=== PATIENT | male | born 1945 | race Caucasian/White ===

== ENCOUNTER 2018-01-23 02:11 | Emergency (ER) | payer MEDICARE, BC, SELFPAY ==
[2018-01-23 02:42] VITALS: BP 126/67; PULSE 95; RESP 20; TEMP 37.2; O2SAT 96; BMI 24.3
--- NOTE | 2018-01-23 03:40 | ED_ITS ---
HPI - Abdominal Pain General Chief Complaint: Abdominal Pain Stated Complaint: can't eat/nausea/loose stool/kidneys hurt Time Seen by Provider: 01/23/18 03:14 Source: patient Mode of arrival: ambulatory Limitations: no limitations History of Present Illness HPI narrative: Patient states he has been having abdominal cramping, nausea, diarrhea, and back pain for the last 3 days. He states he was hoping that he would get better, but the symptoms she has keep going on. He and his were supposed to leave [place] train trip [place], the patient does not feel well enough to go. He denies fevers. No abdominal trauma. No chronic abdominal conditions. MD complaint: abdominal pain Onset (ago): day(s) (Three) Pain Consistency: intermittent (Lacks is awake) Location: diffuse (Worse in the lower) Severity: moderate Severity scale (1-10): 5 Quality: cramping and stabbing Radiation: none Migration to: no migration Relieving factors: nothing Exacerbating factors: eating Context: other (No foreign travel or sick contacts. No food poisoning or recent antibiotic use.) Related Data Home Medications Medication Instructions Recorded Confirmed metoprolol succinate 50 mg PO QDAY #30 ter 01/05/16 Previous Rx's Medication Instructions Recorded nitroglycerin [Nitrostat] 0.4 mg SUBLINGUAL PRN PRN #30 tab 01/06/16 diazepam [Valium] 10 mg PO TIDP PRN #10 tab 03/25/16 ibuprofen 600 mg PO Q6HP PRN #20 tab 03/25/16 prednisone 10 mg PO QDAY #30 tab 03/25/16 acetaminophen-codeine 1 tab PO Q6H PRN #7 tab 01/23/18 [Tylenol-Codeine #3] azithromycin See Label Instructions .ROUTE 01/23/18 .COMPLEX #6 tab ondansetron [Zofran ODT] 4 mg PO QID PRN #10 tab 01/23/18 Allergies Allergy/AdvReac Type Severity Reaction Status Date / Time Penicillins [PENICILLINS] Allergy Mild ANAPHLAXYSI Verified 01/23/18 02:46 S Review of Systems Review of Systems All systems reviewed & are unremarkable except as noted in HPI and below Constitutional Denies chills, Denies fever(s), Denies lethargy and Denies weakness Eyes Denies change in vision, Denies eye discharge, Denies irritation and Denies loss of vision ENT Ears, Nose, Mouth, and Throat: Denies change in voice, Denies neck pain and Denies sore throat Cardiovascular Denies chest pain, Denies irregular heart rhythm, Denies lightheadedness, Denies palpitations, Denies dyspnea, Denies dyspnea on exertion and Denies orthopnea Respiratory Denies cough, Denies dyspnea, Denies dyspnea on exertion and Denies wheezing Gastrointestinal Gastrointestinal: Reports abdominal pain, Reports change in bowel habits, Reports diarrhea, Reports nausea and Denies vomiting Genitourinary Denies hematuria, Denies flank pain, Denies urinary incontinence and Denies urinary urgency Musculoskeletal Denies neck pain Integumentary/Breasts Denies pruritus, Denies erythema, Denies rash and Denies wounds Neurologic Denies confusion, Denies loss of vision and Denies weakness Psychiatric Denies anxiety, Denies confusion, Denies depression, Denies homicidal ideation and Denies suicidal ideation Endocrine Denies palpitations Hematologic/Lymphatic Denies easy bruising Allergic/Immunologic Denies wheezing [facility] Medical History Joint pain (Acute) Sciatica of right side (Acute) Chest pain (Acute) Lumbar strain (Acute) Surgical History No pertinent past surgical history (Acute) Social History Smoking Status: Current some day smoker Exam Initial Vital Signs Initial Vital Signs: Vital Signs Temperature 99.0 F 01/23/18 02:42 Pulse Rate 95 H 01/23/18 02:42 Respiratory Rate 20 01/23/18 02:42 Blood Pressure 126/67 01/23/18 02:42 Pulse Oximetry 96 01/23/18 02:42 Const General: cooperative and well developed Nutritional Appearance: well nourished Orientation: alert, awake, oriented x3 and not confused [facility] Head: normocephalic and atraumatic Ears: external ears normal Nose: external nose normal and No nasal discharge Face and sinus: face symmetric and No dry mucous membranes Mouth: oral mucosae normal and moist mucous membranes Eyes General: appearance normal, both eyes and all related structures Eyelids: eyelids normal Conjunctivae: conjunctivae normal Sclera: sclerae normal Pupils: PERRL EOM: EOM intact bilaterally Neck Neck: normal visual inspection, trachea midline, No lymphadenopathy, No midline deformity and No JVD Lymphatic: No lymphedema Chest Chest: normal inspection of the chest Resp Effort & Inspection: normal respiratory effort, able to speak in complete sentences, no respiratory distress and no use of accessory muscles Auscultation: clear to auscultation bilaterally, no rales, no rhonchi and no wheezes Cardio Rate: regular rate Rhythm: regular rhythm Heart Sounds: no click, no gallops, no murmurs and no rubs Pulses: normal peripheral pulses GI Inspection: non-distended Palpation: soft, no hepatosplenomegaly, No guarding, No pulsatile mass and tender (Mild, diffuse) Auscultation: normal bowel sounds Back/Spine/Pelvis Back: No CVA tenderness Cervical Spine: cervical ROM normal and No pain with cervical ROM Thoracic/Lumbar Spine: thoracic and lumbar spine normal to inspection Skin General: no rashes or lesions noted, No jaundice and No petechiae Neuro General: alert, oriented x3, gait normal and no focal motor deficits Speech: speech normal Extrem General: full ROM, no clubbing, cyanosis or edema, no pedal edema and no calf tenderness Psych Appearance: well kempt Mental Status: mental status grossly normal Attitude: cooperative Thought Content: normal and suicidality Judgment: judgment good Course Course Narrative: Patient was worked up for his symptoms, including those labs and stool studies. He was treated symptomatically with IV fluids, Zofran, and analgesia. His stool studies did reveal Campylobacter. Patient was started on azithromycin for this. He was found to be feeling much better after receiving fluids and symptomatic medication. We have discussed home management symptoms, as well as the usual indications for return. Patient will follow up with his primary care physician otherwise. Orders Ordered: Discontinued Medications Azithromycin (Zithromax) 500 mg PO NOW ONE Stop: 01/23/18 06:21 Last Admin: 01/23/18 06:31 Dose: 500 mg Hydromorphone HCl (Dilaudid) 1 mg IV NOW ONE Stop: 01/23/18 04:26 Last Admin: 01/23/18 05:24 Dose: 1 mg Sodium Chloride (Normal Saline 0.9%) 1,000 mls @ 1,000 mls/hr IV BOLUS ONE Stop: 01/23/18 05:24 Last Infusion: 01/23/18 05:50 Dose: 0 mls/hr Admin: 01/23/18 04:48 Dose: 1,000 mls/hr Ketorolac Tromethamine (Toradol) 30 mg IV NOW ONE Stop: 01/23/18 04:22 Last Admin: 01/23/18 04:47 Dose: 30 mg Ondansetron HCl (Zofran) 4 mg IV NOW ONE Stop: 01/23/18 04:23 Last Admin: 01/23/18 04:47 Dose: 4 mg Vital Signs - 8 hr 01/23/18 02:42 Temperature 99.0 F Pulse Rate 95 H Respiratory Rate 20 Blood Pressure 126/67 Pulse Oximetry 96 MDM - Abdominal Pain Medical Records Attestation: I reviewed the patient's medical records. Lab Data Attestation: I reviewed the patient's lab results. Result diagrams: 01/23/18 04:50 01/23/18 04:50 Lab Results 01/23/18 01/23/18 Range/Units 04:50 04:50 WBC 5.8 (4.5-11.0) X10^3/uL RBC 4.52 (4.5-5.9) X10^6/uL Hgb 14.6 (13.5-17.5) g/dL Hct 41.8 (41-53) % MCV 92.3 (80-100) fL MCH 32.4 (26-34) PG MCHC 35.1 (30-36) % RDW 13.2 (11.6-14.8) % Plt Count 142 L (150-400) X10^3/uL Neut % (Auto) 63.9 (50-75) % Lymph % (Auto) 12.0 L (25-40) % [place] % (Auto) 22.7 H (3-14) % Eos % (Auto) 0.7 L (2-4) % Baso % (Auto) 0.7 (0-2) % Neut # (Auto) 3700 (7109-0465) /uL Sodium 132 L (137-145) mmol/L Potassium 3.5 (3.4-5.1) mmol/L Chloride 98 (98-107) mmol/L Carbon Dioxide 26 (22-32) mmol/L BUN 16 (9-20) mg/dL Creatinine 0.80 (0.66-1.25) mg/dL Estimated GFR > 60.0 (>60) mL/min BUN/Creatinine Ratio 20.0 (6-22) Glucose 134 H (80-110) mg/dL Calcium 8.6 (8.4-10.2) mg/dL Total Bilirubin 1.3 (0.2-1.3) mg/dL AST 25 (17-59) IU/L ALT 25 (21-72) IU/L Alkaline Phosphatase 61 (38-126) U/L Total Protein 6.3 (6.3-8.2) g/dL Albumin 3.6 (3.5-5.0) g/dL Globulin 2.7 (1.7-4.1) g/dL Albumin/Globulin Ratio 1.3 (1.0-2.8) Point of care testing: Urine Dip Bedside Urine Glucose Negative Bedside Urine Bilirubin - Negative Bedside Urine Ketone +/- 5 Urine Specific [place] 1.010 Bedside Urine Occult Blood - Negative Bedside Urine pH 6.0 Bedside Urine Protein +/- 15 Bedside Urine Urobilinogen - Negative Bedside Urine Nitrite - Negative Bedside Urine Leukocytes - Negative Esterase Imaging Data CT scan - abdomen: Radiologist's impression: [place] [address] CT Scan Report Signed Patient: Jameson Pavon MR#: [id number] : 1945 Acct:[id number] Age/Sex: 72 / M Date of Service: 01/23/18 Loc: ED Accession Number: [id number] Procedure: CT abdomen pelvis w con Ordering Provider: Lola Wright MD PROCEDURE: CT ABDOMEN PELVIS W CON INDICATIONS: abdominal pain TECHNIQUE: After the administration of intravenous contrast, 5 mm thick sections acquired from the diaphragm to the symphysis. 5 mm coronal and sagittal reformats were acquired. For radiation dose reduction, the following was used: automated exposure control, adjustment of mA and/or kV according to patient size. COMPARISON: None. FINDINGS: Image quality: Excellent. ABDOMEN: Lung bases: Lung bases are clear. Heart size is normal. Solid organs: Liver is normal in size and enhancement. Gallbladder is normal. Biliary system is non dilated. Pancreas enhances normally. Spleen is normal in size and enhancement. No adrenal nodules. Kidneys demonstrate normal size and enhancement, without hydronephrosis. Peritoneum and bowel: Stomach is contracted. Gastric wall may be thickened. Colon is diffusely thickened consistent with colitis. Terminal ileum also appears thickened. There is a small amount of free fluid in right paracolic gutters. No free air. There are scattered colonic diverticula. No evidence for active diverticulitis. Stomach is contracted. Nodes and vessels: No retroperitoneal or mesenteric adenopathy by size criteria. Aorta and inferior vena cava are normal in size. Severe splenic artery calcification. Miscellaneous: No ventral hernias. PELVIS: Genitourinary: Bladder wall thickness is normal. Miscellaneous: No inguinal hernias or adenopathy. Bones: No suspicious bony lesions. No vertebral body compression fractures. IMPRESSION: 1. Diffuse colonic wall thickening consistent with colitis. There is also thickening of terminal ileum. A small amount of free fluid is present in the paracolic gutters. No free air. Differential diagnosis includes infectious etiology versus inflammatory bowel disease. Recommend cortical correlation. 2. Stomach wall may be thickened but the stomach is contracted. 3. Diverticulosis without acute diverticulitis. No significant discrepancy with the manager shift radiology preliminary report. Dictated by: Wayne Lee M.D. on 01/23/2018 at 7:41 Transcribed by: JANNA on 01/23/2018 at 7:49 Approved by: Wayne Lee M.D. on 01/23/2018 at 18:09 [place] [address] CT Scan Report Signed Patient: Jameson Pavon MR#: [id number] : 1945 Acct:[id number] Age/Sex: 72 / M Date of Service: 01/23/18 Loc: ED Accession Number: [id number] Procedure: CT abdomen pelvis w con Ordering Provider: Lola Wright MD PROCEDURE: CT ABDOMEN PELVIS W CON INDICATIONS: abdominal pain TECHNIQUE: After the administration of intravenous contrast, 5 mm thick sections acquired from the diaphragm to the symphysis. 5 mm coronal and sagittal reformats were acquired. For radiation dose reduction, the following was used: automated exposure control, adjustment of mA and/or kV according to patient size. COMPARISON: None. FINDINGS: Image quality: Excellent. ABDOMEN: Lung bases: Lung bases are clear. Heart size is normal. Solid organs: Liver is normal in size and enhancement. Gallbladder is normal. Biliary system is non dilated. Pancreas enhances normally. Spleen is normal in size and enhancement. No adrenal nodules. Kidneys demonstrate normal size and enhancement, without hydronephrosis. Peritoneum and bowel: Stomach is contracted. Gastric wall may be thickened. Colon is diffusely thickened consistent with colitis. Terminal ileum also appears thickened. There is a small amount of free fluid in right paracolic gutters. No free air. There are scattered colonic diverticula. No evidence for active diverticulitis. Stomach is contracted. Nodes and vessels: No retroperitoneal or mesenteric adenopathy by size criteria. Aorta and inferior vena cava are normal in size. Severe splenic artery calcification. Miscellaneous: No ventral hernias. PELVIS: Genitourinary: Bladder wall thickness is normal. Miscellaneous: No inguinal hernias or adenopathy. Bones: No suspicious bony lesions. No vertebral body compression fractures. IMPRESSION: 1. Diffuse colonic wall thickening consistent with colitis. There is also thickening of terminal ileum. A small amount of free fluid is present in the paracolic gutters. No free air. Differential diagnosis includes infectious etiology versus inflammatory bowel disease. Recommend cortical correlation. 2. Stomach wall may be thickened but the stomach is contracted. 3. Diverticulosis without acute diverticulitis. No significant discrepancy with the manager shift radiology preliminary report. Dictated by: Wayne Lee M.D. on 01/23/2018 at 7:41 Transcribed by: JANNA on 01/23/2018 at 7:49 Approved by: Wayne Lee M.D. on 01/23/2018 at 18:09 Discharge Plan Departure Patient Disposition: Home Clinical Impression: Campylobacter enteritis Discharge Date/Time: 01/23/18 07:18 Interventions: ED Discharge Assessment Last Done: 01/23/18 07:15 Instructions: DI for Bacterial Gastroenteritis -- Adult Activity Restrictions/Additional Instructions: Your CT and labs look good. Your stool testing was positive for a certain type of bacteria which can cause the symptoms you are having. This will usually go away on its own about a week; however antibiotics can help shorten the duration of the illness. As such, you have been started on antibiotics appropriate for this infection. It is best not to take Imodium or other medications to try to control the diarrhea. Instead, use medication for nausea and drink as much fluid as possible. Prescriptions: New azithromycin 250 mg tablet See Label Instructions .ROUTE .COMPLEX Qty: 6 RF: 0 acetaminophen-codeine [Tylenol-Codeine #3] 300-30 mg tablet 1 tab PO Q6H PRN (Reason: pain) Qty: 7 RF: 0 ondansetron [Zofran ODT] 4 mg tablet,disintegrating 4 mg PO QID PRN (Reason: nausea and vomiting) Qty: 10 RF: 0 No Action metoprolol succinate 50 MG tablet extended release 24 hr 50 mg PO QDAY Qty: 30 RF: 0 nitroglycerin [Nitrostat] 0.4 MG tablet, sublingual 0.4 mg Sublingual PRN PRNQty: 30 RF: 2 prednisone 10 MG tablet 10 mg PO QDAY Qty: 30 RF: 0 diazepam [Valium] 10 MG tablet 10 mg PO TIDP PRNQty: 10 RF: 0 ibuprofen 600 MG tablet 600 mg PO Q6HP PRNQty: 20 RF: 0 Referrals: Miguelito Wilson MD [Primary Care Provider] - (Please follow-up with your doctor in 5 days if not better.)
[2018-01-23] MEDS: ONDANSETRON 4 MG/2 ML INJ IV (04:47)
[2018-01-23] MEDS: KETOROLAC 60 MG/2 ML VIAL 30 MG IV (04:47)
[2018-01-23] MEDS: SODIUM CHLORIDE 0.9% 1,000 ML 1000 ML IV (04:48)
[2018-01-23 05:04] LABS: Add Manual Diff / Slide Review NO; Basophils Percent Auto 0.7 % (0-2); Eosinophils Percent Auto 0.7 % (2-4); Hematocrit 41.8 % (41-53); Hemoglobin 14.6 g/dL (13.5-17.5); Mean Corpuscular HGB Conc 35.1 % (30-36); Mean Corpuscular Hemoglobin 32.4 PG (26-34); Mean Corpuscular Volume 92.3 fL (80-100); Monocytes Percent Auto 22.7 % (3-14); Neutrophils Absolute Auto 3700 /uL (3000-5900); Neutrophils Percent Auto 63.9 % (50-75); Platelet Count 142 X10^3/uL (150-400); Red Blood Cell Count 4.52 X10^6/uL (4.5-5.9); Red Cell Distribution Width 13.2 % (11.6-14.8); White Blood Cell Count 5.8 X10^3/uL (4.5-11.0)
[2018-01-23 05:09] LABS: Alanine Aminotransferase 25 IU/L (21-72); Albumin 3.6 g/dL (3.5-5.0); Albumin Globulin Ratio 1.3 (1.0-2.8); Alkaline Phosphatase 61 U/L (38-126); Aspartate Aminotransferase 25 IU/L (17-59); Bilirubin Total 1.3 mg/dL (0.2-1.3); Blood Urea Nitrogen 16 mg/dL (9-20); Calcium 8.6 mg/dL (8.4-10.2); Carbon Dioxide 26 mmol/L (22-32); Chloride 98 mmol/L (98-107); Estimated Glomerular Filt Rate > 60.0 mL/min (>60); Globulin 2.7 g/dL (1.7-4.1); Glucose 134 mg/dL (80-110); HEMOLYSIS 45 (0-50); Potassium 3.5 mmol/L (3.4-5.1); Sodium 132 mmol/L (137-145); Total Protein 6.3 g/dL (6.3-8.2)
[2018-01-23 05:20] VITALS: BP 114/65; PULSE 80; RESP 15; O2SAT 97
--- NOTE | 2018-01-23 05:20 | DI.CT.S_ITS ---
PROCEDURE: CT ABDOMEN PELVIS W CON INDICATIONS: abdominal pain TECHNIQUE: After the administration of intravenous contrast, 5 mm thick sections acquired from the diaphragm to the symphysis. 5 mm coronal and sagittal reformats were acquired. For radiation dose reduction, the following was used: automated exposure control, adjustment of mA and/or kV according to patient size. COMPARISON: None. FINDINGS: Image quality: Excellent. ABDOMEN: Lung bases: Lung bases are clear. Heart size is normal. Solid organs: Liver is normal in size and enhancement. Gallbladder is normal. Biliary system is non dilated. Pancreas enhances normally. Spleen is normal in size and enhancement. No adrenal nodules. Kidneys demonstrate normal size and enhancement, without hydronephrosis. Peritoneum and bowel: Stomach is contracted. Gastric wall may be thickened. Colon is diffusely thickened consistent with colitis. Terminal ileum also appears thickened. There is a small amount of free fluid in right paracolic gutters. No free air. There are scattered colonic diverticula. No evidence for active diverticulitis. Stomach is contracted. Nodes and vessels: No retroperitoneal or mesenteric adenopathy by size criteria. Aorta and inferior vena cava are normal in size. Severe splenic artery calcification. Miscellaneous: No ventral hernias. PELVIS: Genitourinary: Bladder wall thickness is normal. Miscellaneous: No inguinal hernias or adenopathy. Bones: No suspicious bony lesions. No vertebral body compression fractures. IMPRESSION: 1. Diffuse colonic wall thickening consistent with colitis. There is also thickening of terminal ileum. A small amount of free fluid is present in the paracolic gutters. No free air. Differential diagnosis includes infectious etiology versus inflammatory bowel disease. Recommend cortical correlation. 2. Stomach wall may be thickened but the stomach is contracted. 3. Diverticulosis without acute diverticulitis. No significant discrepancy with the overnight babysitter radiology preliminary report. Dictated by: Wayne Lee M.D. on 01/23/2018 at 7:41 Transcribed by: JANNA on 01/23/2018 at 7:49 Approved by: Wayne Lee M.D. on 01/23/2018 at 18:09
[2018-01-23] MEDS: HYDROMORPHONE 1 MG INJ IV (05:24)
[2018-01-23] MEDS: AZITHROMYCIN 250 MG TABLET 500 MG PO (06:31)
[2018-01-23 07:15] VITALS: BP 99/67; PULSE 94; RESP 18; TEMP 36.9; O2SAT 97
== END 2018-01-23 07:18 | disposition home or self-care (01) ==
PROVIDERS: Emergency Provider Emergency Medicine; Family Provider Family Medicine; PCP Family Medicine
DX: A04.5 Campylobacter enteritis (principal)
CPT/HCPCS: 36591; 74177; 80053; 81003; 85025; 87015; 87045; 87046; 87177; 87427; 87899; 96361; 96374; 96375; 99283; 99285; J1170; J1885; J2405; Q9967

== ENCOUNTER 2018-07-08 14:42 | Observation (INO) | payer MEDICARE, BC, SELFPAY ==
[2018-07-08] VITALS (10 sets, daily range): BP systolic 98–142; BP diastolic 56–98; PULSE 69–80; RESP 15–23; TEMP 36.4–37.1; O2SAT 96–100; BMI 25.8
--- NOTE | 2018-07-08 15:10 | ED.CHESTPAIN ---
HPI - Chest Pain General Chief Complaint: Chest Pain Stated Complaint: CHEST PAINS/LEFT SIDE OF FACE Time Seen by Provider: 07/08/18 14:54 Source: patient Mode of arrival: ambulatory Limitations: no limitations History of Present Illness HPI narrative: patient is a 73 year with known coronary artery disease is an LAD stent placed about 10 years ago presenting with atypical chest pain. He says it started around 9:00 a.m. this morning. It does come and go he thinks it is slightly worse with exertion he says this is different than his heart attack this pain ever before. His it is more of an ache nonradiating. He denies shortness of breath. He says he is chest pain-free now. MD complaint: chest pain Onset (ago): hour(s) Duration: intermittent Onset: during exertion Pain location: left chest Severity: mild Severity scale (1-10): 1 Quality: aching Pain radiation: none Relieving factors: rest Exacerbating factors: exertion Related Data Home Medications Medication Instructions Recorded Confirmed metoprolol succinate 50 mg PO QDAY #30 ter 01/05/16 Previous Rx's Medication Instructions Recorded nitroglycerin [Nitrostat] 0.4 mg SUBLINGUAL PRN PRN #30 tab 01/06/16 diazepam [Valium] 10 mg PO TIDP PRN #10 tab 03/25/16 ibuprofen 600 mg PO Q6HP PRN #20 tab 03/25/16 prednisone 10 mg PO QDAY #30 tab 03/25/16 acetaminophen-codeine 1 tab PO Q6H PRN #7 tab 01/23/18 [Tylenol-Codeine #3] azithromycin See Rx Instructions .ROUTE 01/23/18 .COMPLEX #6 tab ondansetron [Zofran ODT] 4 mg PO QID PRN #10 tab 01/23/18 Allergies Allergy/AdvReac Type Severity Reaction Status Date / Time Penicillins [PENICILLINS] Allergy Mild ANAPHLAXYSI Verified 01/23/18 02:46 S Review of Systems Review of Systems ROS Unobtainable: All systems reviewed & are unremarkable except as noted in HPI and below Constitutional Denies chills, Denies fatigue, Denies fever(s), Denies lethargy and Denies weakness Eyes Denies change in vision, Denies eye discharge, Denies irritation and Denies loss of vision ENT Ears, Nose, Mouth, and Throat: Denies change in voice, Denies neck pain and Denies sore throat Cardiovascular Reports as per HPI, Denies dyspnea and Denies dyspnea on exertion Respiratory Denies cough, Denies dyspnea, Denies dyspnea on exertion and Denies wheezing Gastrointestinal Gastrointestinal: Denies abdominal pain, Denies change in bowel habits, Denies diarrhea, Denies nausea and Denies vomiting Genitourinary Denies hematuria, Denies flank pain, Denies urinary incontinence and Denies urinary urgency Musculoskeletal Denies neck pain Integumentary/Breasts Denies pruritus, Denies erythema, Denies rash and Denies wounds Neurologic Denies loss of vision and Denies weakness Endocrine Denies fatigue and Denies flushing Allergic/Immunologic Denies wheezing PFSH Medical History Joint pain (Acute) Sciatica of right side (Acute) Chest pain (Acute) Lumbar strain (Acute) Coronary artery disease (Acute) Diabetes (Acute) Hyperlipidemia (Acute) Hypertension (Acute) Surgical History No pertinent past surgical history (Acute) Social History Smoking Status: Current some day smoker Social History Smoking Status: Current some day smoker Exam Initial Vital Signs Initial Vital Signs: Vital Signs Temperature 98.8 F 07/08/18 14:58 Pulse Rate 80 07/08/18 14:58 Respiratory Rate 18 07/08/18 14:58 Blood Pressure 132/89 07/08/18 14:58 Pulse Oximetry 100 07/08/18 14:58 GENERAL: well alert male no acute distress HEENT: Head atraumatic,EOMI, pupils reactive, face symmetric, CARDIOVASCULAR: Regular rate and rhythm without murmurs, rubs or gallops. RESPIRATORY: Breath sounds equal bilaterally, no wheezes rales or rhonchi. ABDOMEN: Soft, nontender. Normoactive bowel sounds all 4 quadrants. No guarding or rebound. EXTREMITIES: Normal range of motion, no clubbing or edema. Neurovascularly intact NEUROLOGICAL: Alert and oriented x4.Normal gait and speech. SKIN: Warm, dry, no laceration, no petechiae, no rashes or lesions. Scores HEART Score Heart Score history: Moderately Suspicious Heart Score EKG: Normal Heart Score Age: > or = 65 years old Heart Score risk factors: > 3 risk factors or hx of atherosclerotic disease Heart Score troponin: < or = to normal limit Heart Score Total: 5 Course Orders Ordered: ED Orders 07/08/18 14:55 Complete Blood Count AUTO DIFF Stat Comprehensive Metabolic Panel Stat Lipase Stat Troponin & CK Cardiac Panel Stat 07/08/18 15:24 XR chest 1V Stat EKG-12 Lead Stat 07/08/18 17:16 Education, smoking cessation ONGOING Acetaminophen (Tylenol) 650 mg PO Q6HR PRN PRN Reason: As Needed for Fever/Mild Pain Enoxaparin Sodium (Lovenox) 40 mg SUBCUT DAILY MARK Nitroglycerin (Nitrostat) 0.4 mg SL [id number] PRN PRN Reason: Chest Pain Last Admin: 07/08/18 15:53 Dose: 0.4 mg Discontinued Medications Acetaminophen (Tylenol) 650 mg PO NOW ONE Stop: 07/08/18 16:03 Last Admin: 07/08/18 16:03 Dose: 650 mg Aspirin (Aspirin Chew) 243 mg PO NOW ONE Stop: 07/08/18 15:22 Last Admin: 07/08/18 15:51 Dose: 243 mg Vital Signs - 8 hr 07/08/18 14:58 07/08/18 15:12 07/08/18 15:53 Temperature 98.8 F Pulse Rate 80 80 71 Respiratory Rate 18 18 Blood Pressure 132/89 120/76 Blood Pressure [Left Arm] 142/83 H Pulse Oximetry 100 07/08/18 15:59 07/08/18 16:12 Temperature Pulse Rate 74 Respiratory Rate 15 Blood Pressure 116/84 Blood Pressure [Left Arm] 126/75 Pulse Oximetry 100 MDM - Chest Pain Lab Data Attestation: I reviewed the patient's lab results. Result diagrams: 07/08/18 14:55 07/08/18 14:55 Lab Results 07/08/18 07/08/18 Range/Units 14:55 14:55 WBC 6.6 (4.5-11.0) X10^3/uL RBC 4.90 (4.5-5.9) X10^6/uL Hgb 15.6 (13.5-17.5) g/dL Hct 46.2 (41-53) % MCV 94.4 (80-100) fL MCH 31.8 (26-34) PG MCHC 33.7 (30-36) % RDW 13.6 (11.6-14.8) % Plt Count 173 (150-400) X10^3/uL Neut % (Auto) 67.0 (50-75) % Lymph % (Auto) 19.6 L (25-40) % [place] % (Auto) 11.3 (3-14) % Eos % (Auto) 1.3 L (2-4) % Baso % (Auto) 0.8 (0-2) % Neut # (Auto) 4400 (3944-6270) /uL Lymph # (Auto) 1300 (8868-2428) /uL [place] # (Auto) 700 (0-900) /uL Eos # (Auto) 100 (0-450) /uL Baso # (Auto) 100 (0-100) /uL Sodium 139 (137-145) mmol/L Potassium 4.0 (3.4-5.1) mmol/L Chloride 101 (98-107) mmol/L Carbon Dioxide 27 (22-32) mmol/L BUN 26 H (9-20) mg/dL Creatinine 0.90 (0.66-1.25) mg/dL Estimated GFR > 60.0 (>60) mL/min BUN/Creatinine Ratio 28.9 H (6-22) Glucose 92 (80-110) mg/dL Calcium 9.8 (8.4-10.2) mg/dL Total Bilirubin 0.7 (0.2-1.3) mg/dL AST 30 (17-59) IU/L ALT 35 (21-72) IU/L Alkaline Phosphatase 79 (38-126) U/L Total Creatine Kinase 71 (55-170) U/L CK-MB (CK-2) TNP CK-MB (CK-2) Rel Index TNP Troponin I < 0.012 (0.01-0.034) ng/mL Total Protein 7.7 (6.3-8.2) g/dL Albumin 4.6 (3.5-5.0) g/dL Globulin 3.1 (1.7-4.1) g/dL Albumin/Globulin Ratio 1.5 (1.0-2.8) Lipase 45 (23-300) U/L Imaging Data Chest x-ray: Radiologist's impression: PROCEDURE: XR CHEST 1V INDICATIONS: chest pain TECHNIQUE: One view of the chest was acquired. COMPARISON: [facility], , CHEST 2 VIEW, 01/05/2016, 10:19. FINDINGS: Surgical changes and devices: None. Lungs and pleura: Lungs are clear. No pleural effusions or pneumothorax. Mediastinum: Mediastinal contours appear normal. Heart size is normal. Bones and chest wall: No suspicious bony lesions. Overlying soft tissues appear unremarkable. IMPRESSION: No acute cardiopulmonary disease process. Dictated by: Carolyne Calles MD, PhD on 07/08/2018 at 16:09 ECG Data Attestation: I personally reviewed and interpreted this ECG as follows: Prior ECG tracings: available for review Interpretation: Normal sinus rhythm rate [address] changes no T-wave inversions [place] interval 165 similar to previous EKG MDM Narrative Medical decision making narrative: patient was having some mild discomfort in his chest was given 1 nitroglycerin which completely resolved the pain but did give him headache. He remains chest pain-free in the ED. I spoke with Dr. Knight is happy to accept. The patient understands that he may not get stress test due to availability. Dr. Knight in ED to see and evaluate patient Discharge Plan Departure Patient Disposition: Admitted as Observation Clinical Impression: Chest pain Qualifiers: Chest pain type: unspecified Qualified Code(s): R07.9 - Chest pain, unspecified Admit Date/Time: 07/08/18 16:29 Admit Provider: Phill Knight
--- NOTE | 2018-07-08 15:10 | PC.NURSE ---
pt while walking , developed left chest dullness 3/10, intermittent, on the way to er, with left jaw/neck pain, on arrival 05/25 dullness. denies shortness of breath, denies nausea or vomiting, denies fever. 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 cardiac stent placement 11 years ago (descending) hx dm, htn,high cholesterol.
--- NOTE | 2018-07-08 15:24 | DI.RAD.S_ITS ---
PROCEDURE: XR CHEST 1V INDICATIONS: chest pain TECHNIQUE: One view of the chest was acquired. COMPARISON: [facility], , CHEST 2 VIEW, 01/05/2016, 10:19. FINDINGS: Surgical changes and devices: None. Lungs and pleura: Lungs are clear. No pleural effusions or pneumothorax. Mediastinum: Mediastinal contours appear normal. Heart size is normal. Bones and chest wall: No suspicious bony lesions. Overlying soft tissues appear unremarkable. IMPRESSION: No acute cardiopulmonary disease process. Dictated by: Carolyne Calles MD, PhD on 07/08/2018 at 16:09 Approved by: Carolyne Calles MD, PhD on 07/08/2018 at 16:10
[2018-07-08 15:31] LABS: Add Manual Diff / Slide Review NO; Basophils Absolute Auto 100 /uL (0-100); Basophils Percent Auto 0.8 % (0-2); Eosinophils Absolute Auto 100 /uL (0-450); Eosinophils Percent Auto 1.3 % (2-4); Hematocrit 46.2 % (41-53); Hemoglobin 15.6 g/dL (13.5-17.5); Lymphocytes Absolute Auto 1300 /uL (1100-4500); Lymphocytes Percent Auto 19.6 % (25-40); Mean Corpuscular HGB Conc 33.7 % (30-36); Mean Corpuscular Hemoglobin 31.8 PG (26-34); Mean Corpuscular Volume 94.4 fL (80-100); Monocytes Absolute Auto 700 /uL (0-900); Monocytes Percent Auto 11.3 % (3-14); Neutrophils Absolute Auto 4400 /uL (1500-7000); Platelet Count 173 X10^3/uL (150-400); Red Cell Distribution Width 13.6 % (11.6-14.8); White Blood Cell Count 6.6 X10^3/uL (4.5-11.0)
[2018-07-08 15:37] LABS: Alanine Aminotransferase 35 IU/L (21-72); Albumin 4.6 g/dL (3.5-5.0); Albumin Globulin Ratio 1.5 (1.0-2.8); Alkaline Phosphatase 79 U/L (38-126); Aspartate Aminotransferase 30 IU/L (17-59); BUN Creatinine Ratio 28.9 (6-22); Bilirubin Total 0.7 mg/dL (0.2-1.3); Blood Urea Nitrogen 26 mg/dL (9-20); Calcium 9.8 mg/dL (8.4-10.2); Carbon Dioxide 27 mmol/L (22-32); Chloride 101 mmol/L (98-107); Creatine Kinase 71 U/L (55-170); Estimated Glomerular Filt Rate > 60.0 mL/min (>60); Globulin 3.1 g/dL (1.7-4.1); Glucose 92 mg/dL (80-110); HEMOLYSIS < 15 (0-50); Lipase 45 U/L (23-300); Sodium 139 mmol/L (137-145); Total Protein 7.7 g/dL (6.3-8.2)
[2018-07-08 15:48] LABS: Troponin I < 0.012 ng/mL (0.01-0.034)
[2018-07-08] MEDS: ASPIRIN 81 MG TAB 243 MG PO (15:51)
[2018-07-08] MEDS: NITROGLYCERIN 0.4 MG SL TAB SL (15:53)
[2018-07-08] MEDS: ACETAMINOPHEN 325 MG TABLET 650 MG PO (16:03)
--- NOTE | 2018-07-08 17:32 | PM.HP.1 ---
History of Present Illness Date Patient Seen: 07/08/18 Time Patient Seen: 17:32 Chief complaint: CHEST PAINS/LEFT SIDE OF FACE Narrative: 73-year-old male with a history of heart disease and a roughly 10-year-old stent, but otherwise very active and symptom free until 9:00 a.m. this morning. 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 Nothing else did not consider a crushing or sharp did not refer into the arm or neck, no dizziness and no dyspnea no nausea. He knew something was amiss so decided he needed to be evaluated. He does note that on arrival to the emergency room he did have a sense of sharp pain into the left neck but no other symptoms developed after that soon after arrival all symptoms resolved except for I think a brief spell that responded readily to nitroglycerin. He does note the last time when he ended up with a stent he had very little in the way of finding then too. He remains symptom free as I examine him a couple of hours after arrival. Family history unremarkable regarding this admission Patient History Medical History Joint pain (Acute) Sciatica of right side (Acute) Chest pain (Acute) Lumbar strain (Acute) Chronic back pain (Chronic) Coronary artery disease (Chronic) Diabetes (Chronic) Hyperlipidemia (Chronic) Hypertension (Chronic) Ulcerative colitis (Chronic) Surgical History History of arthroscopic knee surgery (Chronic) History of bilateral cataract extraction (Chronic) History of heart artery stent (Chronic) No pertinent past surgical history (Acute) Social History Smoking Status: Current some day smoker Family & Social History Safety & Behavioral: Feels Safe in Current Yes Environment Been Physically Hurt or No Threatened By a Person Tobacco & Substance use: Smoking Status Current some day smoker alcohol intake frequency 0-2 drinks per day Substance Use Type does not use Meds Home Medications Medication Instructions Recorded Confirmed Type metoprolol succinate 50 mg PO QDAY #30 ter 01/05/16 History nitroglycerin [Nitrostat] 0.4 mg SUBLINGUAL PRN PRN #30 tab 01/06/16 Rx diazepam [Valium] 10 mg PO TIDP PRN #10 tab 03/25/16 Rx ibuprofen 600 mg PO Q6HP PRN #20 tab 03/25/16 Rx prednisone 10 mg PO QDAY #30 tab 03/25/16 Rx acetaminophen-codeine 1 tab PO Q6H PRN #7 tab 01/23/18 Rx [Tylenol-Codeine #3] azithromycin See Rx Instructions .ROUTE 01/23/18 Rx .COMPLEX #6 tab ondansetron [Zofran ODT] 4 mg PO QID PRN #10 tab 01/23/18 Rx Allergies Allergy/AdvReac Type Severity Reaction Status Date / Time Penicillins [PENICILLINS] Allergy Mild ANAPHLAXYSI Verified 01/23/18 02:46 S Review of Systems Review of Systems All systems reviewed & are unremarkable except as noted in HPI and below Exam Vital Signs (past 8 hours): - 07/08/18 14:58 07/08/18 15:12 07/08/18 15:53 Temperature 98.8 F Pulse Rate 80 80 71 Respiratory Rate 18 18 Blood Pressure 132/89 120/76 Blood Pressure [Left Arm] 142/83 H Pulse Oximetry 100 07/08/18 15:59 07/08/18 16:12 Temperature Pulse Rate 74 Respiratory Rate 15 Blood Pressure 116/84 Blood Pressure [Left Arm] 126/75 Pulse Oximetry 100 Oxygen Delivery Method Room Air Narrative Exam Narrative: Healthy appearing older man lying quietly in bed with his sitting nearby. No apparent distress. HEENT unremarkable neck benign no jugular venous distention no bruit chest is clear heart regular without murmur abdomen is soft nontender nondistended normoactive bowel tones and no organomegaly or mass. Extremities without edema neurologically nonfocal. Objective Labs Result Diagrams: 07/08/18 14:55 07/08/18 14:55 Labs: Laboratory Results - last 24 hr 07/08/18 07/08/18 14:55 14:55 WBC 6.6 RBC 4.90 Hgb 15.6 Hct 46.2 MCV 94.4 MCH 31.8 MCHC 33.7 RDW 13.6 Plt Count 173 Neut % (Auto) 67.0 Lymph % (Auto) 19.6 L [place] % (Auto) 11.3 Eos % (Auto) 1.3 L Baso % (Auto) 0.8 Neut # (Auto) 4400 Lymph # (Auto) 1300 [place] # (Auto) 700 Eos # (Auto) 100 Baso # (Auto) 100 Sodium 139 Potassium 4.0 Chloride 101 Carbon Dioxide 27 BUN 26 H Creatinine 0.90 Estimated GFR > 60.0 BUN/Creatinine Ratio 28.9 H Glucose 92 Calcium 9.8 Total Bilirubin 0.7 AST 30 ALT 35 Alkaline Phosphatase 79 Total Creatine Kinase 71 CK-MB (CK-2) TNP CK-MB (CK-2) Rel Index TNP Troponin I < 0.012 Total Protein 7.7 Albumin 4.6 Globulin 3.1 Albumin/Globulin Ratio 1.5 Lipase 45 Assessment & Plan Assessment & Plan narrative: 1. Chest pain with history of heart disease now resolved but concerns about the possibility of a cardiac issue. Will follow over night with labs and EKG as long as stable discharge home. On stress test sometime next week 2. history of coronary artery disease with about a 10-year-old stent 3. hyperlipidemia remains on statin. Continue usual medications 4. hypertension usually well controlled on 2 medications. Continue usual medications 5. diabetes usually well maintained on a single medication. Continue usual medications 6. ulcerative colitis maintained on a single medication. Continue same. 7. Code status reviewed with patient, he notes there is a advanced directive in the system here at the hospital. Indicates a preference for full code. So ordered Time Spent With Patient Time with patient: Greater than 35 minutes
[2018-07-08] MEDS: ENOXAPARIN 40 MG/0.4 ML SYRINGE SUBCUT (20:28)
[2018-07-08] MEDS: ATORVASTATIN 20 MG TABLET PO (20:29)
[2018-07-08] MEDS: ZOLPIDEM 5 MG TABLET 10 MG PO (20:29)
[2018-07-09 00:20] VITALS: BP 113/63; PULSE 69; RESP 18; TEMP 36.6; O2SAT 98
[2018-07-09 01:06] VITALS: O2SAT 95
[2018-07-09] MEDS: TRAZODONE 50 MG TABLET PO (01:32)
--- NOTE | 2018-07-09 05:17 | PC.NURSE ---
Pt is A and O x 4, in good spirits, unable to sleep despite 10 mg zolpidem and 50 mg trazadone po. Denies chest px, nausea. BGC= 92. Good appetite.
[2018-07-09 05:19] VITALS: BP 121/71; PULSE 76; RESP 16; TEMP 36.3; O2SAT 96
[2018-07-09 05:59] LABS: Creatine Kinase 54 U/L (55-170)
[2018-07-09 06:12] LABS: Troponin I < 0.012 ng/mL (0.01-0.034)
[2018-07-09 07:20] VITALS: BP 110/63; PULSE 68; RESP 16; TEMP 36.3; O2SAT 98
[2018-07-09] MEDS: ASPIRIN EC 325 MG TABLET PO (08:59)
[2018-07-09] MEDS: METOPROLOL ER 50 MG TABLET PO (08:59)
[2018-07-09] MEDS: MESALAMINE 250 MG CAPSULE.ER 1000 MG PO (08:59)
[2018-07-09] MEDS: ENOXAPARIN 40 MG/0.4 ML SYRINGE SUBCUT (08:59)
[2018-07-09] MEDS: METFORMIN HCL 500 MG TABLET PO (09:17)
[2018-07-09 09:30] VITALS: O2SAT 98
--- NOTE | 2018-07-09 10:07 | CM.DANOTE ---
Addendum entered by Diamond Torres LPN 07/09/18 12:24: Dr. Knight did see pt and has deemed him stable for home. He will see his PCP in 3-5 days. P: home when d/c paperwork is completed. Checked in again with EMERALD Kee as pt was now in the bathroom. She confirms plan with no d/c planning needs identified. Original Note: Addendum entered by Diamond Torres LPN 07/09/18 10:16: Went to room to introduce self and role. Pt was noted to be lying in bed and ordering lunch. o2 per nasal cannula is in place. WB is updated with DCP contact info. Checked in with EMERALD Kee. She reports that pt uses a CPAP at home and since he does not have that here he wishes to use the o2 while lying down. Will follow prn for any d/c needs once physician sees pt. 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 Original Note: Discharge Planning/Care Management DCP: assessment: case received, EMR reviewed and discussed in Team Rounds. Pt is a 73 year old male who admitted yesterday evening to care of Dr. Knight/IFP. PCP: Dr. Wilson Payer: Medicare and [facility] RN coordinator Betty reports that pt is hopeful for d/c today and is waiting to see the physician. He carries dx of chest pain and with hx of stenting in past. Advanced directive, confirm from FAMILY Start: 07/08/18 20:07 Freq: Q24H Status: Active Protocol: Document 07/08/18 20:07 LDV (Rec: 07/08/18 21:23 LDV [id number]) Advance Directive, confirm on record Time 20:00 Person contacted patient Copy received No CM Discharge Assessment Start: 07/09/18 10:06 Freq: Status: Active Protocol: Document 07/09/18 10:06 ITV (Rec: 07/09/18 10:07 ITV [id number]) Discharge Planning Assessment Advance Directives? Yes History Provided By Medical Record Prior Living Arrangements House Household Members spouse Independent with ADL's Yes Is patient alert and oriented? Yes Whiteboard Updated in Patient Room with Yes name and ext. # of Photo Graphics Librarian Review Status In Process Next Review Type Continued Stay Review
--- NOTE | 2018-07-09 10:52 | PM.DS.1 ---
History of Present Illness Date Patient Seen: 07/09/18 Time Patient Seen: 10:52 Chief complaint: CHEST PAINS/LEFT SIDE OF FACE Narrative: See H&P Discharge Providers Date of admission: 07/08/18 16:29 Primary care physician: Miguelito Wilson MD Discharge provider: Phill Knight MD Discharge Date: 07/09/18 Summary Discharge Diagnosis: 1. Chest pain, moderate, no clear cause identified. Now resolved. 2. Coronary artery disease, with a 10-year-old stent, unclear impact on 1st item. Labs and EKG show no evidence of this issue today. 3. Hypertension well controlled during this admission. 4. Sleep apnea, usually uses CPAP just use nasal oxygen while here some impact. 5. Hyperlipidemia remains on same medication. 6. Diabetes type 2 historically well controlled with good numbers while here. Remains on same medication. 7. Ulcerative colitis sounds like long history of remission remains on medication. Hospital Course: Patient was free of pain or symptoms shortly after arrival in the ER, and has remained free of symptoms since admission. He was admitted for observation and monitored closely through the night with additional labs an EKG in the morning all suggesting a stable noncardiac process. He did have some issues with poor sleep partly due to not having his CPAP available and just general chronic problem. Tried to address this with medications with little benefit so he is tired this morning but only related to that issue. No other issues stable otherwise. Ready for home Status at Discharge Cognitive/behavioral status at discharge: No change Functional status at discharge: independent ambulation Overall status at discharge: patient is back to baseline Time Spent with Patient Greater than 30 minutes Time spent discussing smoking cessation with patient: 3 to 10 minutes Exam Vital Signs (past 8 hours): - 07/09/18 05:19 07/09/18 07:20 07/09/18 09:30 Temperature 97.3 F L 97.4 F L Pulse Rate 76 68 Respiratory Rate 16 16 Blood Pressure 121/71 110/63 Pulse Oximetry 96 98 98 Oxygen Delivery Method Nasal Cannula Oxygen Flow Rate 3 Objective Labs Result Diagrams: 07/08/18 14:55 07/08/18 14:55 Labs: Laboratory Results - last 24 hr 07/08/18 07/08/18 07/09/18 14:55 14:55 05:07 WBC 6.6 RBC 4.90 Hgb 15.6 Hct 46.2 MCV 94.4 MCH 31.8 MCHC 33.7 RDW 13.6 Plt Count 173 Neut % (Auto) 67.0 Lymph % (Auto) 19.6 L [place] % (Auto) 11.3 Eos % (Auto) 1.3 L Baso % (Auto) 0.8 Neut # (Auto) 4400 Lymph # (Auto) 1300 [place] # (Auto) 700 Eos # (Auto) 100 Baso # (Auto) 100 Sodium 139 Potassium 4.0 Chloride 101 Carbon Dioxide 27 BUN 26 H Creatinine 0.90 Estimated GFR > 60.0 BUN/Creatinine Ratio 28.9 H Glucose 92 Calcium 9.8 Total Bilirubin 0.7 AST 30 ALT 35 Alkaline Phosphatase 79 Total Creatine Kinase 71 54 L CK-MB (CK-2) TNP TNP CK-MB (CK-2) Rel Index TNP TNP Troponin I < 0.012 < 0.012 Total Protein 7.7 Albumin 4.6 Globulin 3.1 Albumin/Globulin Ratio 1.5 Lipase 45 Discharge Plan Discharge Plan Patient Disposition: Home Discharge comment: To resume all usual meds, plus rx nitro Discharge Med Rec/Prescriptions Prescriptions: New nitroglycerin [Nitrostat] 0.4 mg Tablet, Sublingual 0.4 mg Sublingual [id number] PRN (Reason: Chest Pain) Qty: 20 RF: 0 Continued metoprolol succinate 50 MG tablet extended release 24 hr 50 mg PO QDAY Qty: 30 RF: 0 ibuprofen 600 MG tablet 600 mg PO Q6HP PRNQty: 20 RF: 0 Follow up/Referrals: Miguelito Wilson MD [Primary Care Provider] - 3-5 Days Provider Discharge Instructions Diet: Diet as Tolerated Skin/Wound/Dressing Care Report to your healthcare provider any signs of infection, such as:: chills, fever, night sweats, increased pain, unusual drainage and unusual redness Discharge Data Primary Care Provider: Miguelito Wilson Attending Provider: Phill Knight Admit Date/Time: 07/08/18 16:29
--- NOTE | 2018-07-09 13:51 | PC.NURSE ---
Am shift Agree with SN Jordan charting, Discharge teaching provided. ANd Iv cath removed for d/c. Pt declined w/c, ambulated to private vehicle.
== END 2018-07-09 13:00 | disposition home or self-care (01) ==
LOC: ED 16:09 → AC 16:30
PROVIDERS: Admitting Provider Family Medicine; Emergency Provider Emergency Medicine; Family Provider Family Medicine; PCP Family Medicine; Visit Provider Family Medicine
DX: R07.9 Chest pain, unspecified (principal); I25.10 Atherosclerotic heart disease of native coronary artery without angina pectoris; E11.9 Type 2 diabetes mellitus without complications; E78.5 Hyperlipidemia, unspecified; I10 Essential (primary) hypertension; F17.210 Nicotine dependence, cigarettes, uncomplicated; K51.90 Ulcerative colitis, unspecified, without complications; G47.30 Sleep apnea, unspecified
CPT/HCPCS: 36415; 36591; 71045; 80053; 82550; 82962; 83690; 84484; 85025; 93005; 93010; 93041; 94762; 99284; 99285; G0378; J1650

== ENCOUNTER → 2018-07-21 10:54 | Outpatient (CLI) | payer MEDICARE, BC, SELFPAY ==
[2018-07-08 19:00] VITALS: BMI 25.8
--- NOTE | 2018-07-21 12:01 | PM.TREADMILL ---
Cardiac Stress Test Report Referral & Results Date Patient Seen: 07/21/18 Requesting provider: Miguelito Wilson Indication: Chest pain Rest ECG: Unremarkable Procedure Note: Today following both written and verbal informed consent the patient was exercised according to a standard Roddy protocol patient went for a total of 7 min 4 sec achieving a maximum heart rate of 129 maximum systolic blood pressure of 144. This is approximately 10.1 METS. Exercise was terminated at this point because of targets were met. Patient was also given Cardiolite through a previously started Hep-Lock IV by the computer service technician approximately 1 minute prior to the cessation of exercise. No ST-T segment changes Normal heart rate and blood pressure response to exercise Functional aerobic impairment rates-20% in the sedentary scale Impression: No evidence of ischemia Better than average exercise capacity Perfusion imaging will be reported separately Please note: Actual ECG tracings can be found in the PACS system.
--- NOTE | 2018-07-25 14:59 | DI.NM.S_ITS ---
DATE OF SERVICE: 07/21/2018 PROCEDURE: Exercise perfusion study. INDICATIONS: Chest pain with known history of CAD, history of drug-coated stent placement to the proximal LAD in 2008, hypertension, hyperlipidemia. RADIOPHARMACEUTICAL: 24.3 mCi technetium-99m Myoview IV was injected at stress and 26.2 mCi technetium-99m Myoview IV was injected at rest. CARDIAC STRESS: Patient underwent exercise perfusion study under the supervision of an attending staff. He walked on Roddy protocol for 7 minutes 04 seconds and achieved 89% of target heart rate and normal blood pressure response; 10.1 METs of workload. Functional aerobic impairment -10%. No chest pain. Baseline EKG revealed sinus rhythm. Stress EKG did not reveal any convincing ischemic changes. There were no significant sustained arrhythmias seen. RAW DATA: There was increased subdiaphragmatic activity. GATED STUDY: Stress LV ejection fraction 81%. No obvious wall motion abnormalities. Resting end-diastolic volume is 87 mL. No transient ischemic dilatation. TID ratio is 0.10, which is within normal limits. Lung/heart ratio is 0.38, which is within normal limits. MYOCARDIAL PERFUSION SCAN: Stress supine, resting supine and stress prone images were compared to each other. Stress supine images revealed small-sized mildly decreased perfusion of inferior wall and inferior apex which got significantly improved during prone images suggestive of diaphragmatic tissue attenuation artifact. Resting supine images also revealed minimally decreased perfusion of basal inferior wall and basal inferoseptum. CONCLUSION: I will call this study a normal myocardial perfusion study with evidence of diaphragmatic tissue attenuation artifact which got resolved during prone images. Patient had perfusion study in 01/2016; at that time also he had similar perfusion defect. He was able to walk for 8 minutes 32 seconds that time. Overall, this is a low-risk myocardial perfusion scan. Jameson Pavon - RN URGENT CARE/ana/ab doc#: [id number]/job#: [id number] dd: 07/25/2018 14:42:00 dt: 07/25/2018 14:45:00 DICTATING MD/COPIES TO: Tiffani Azevedo MD COPIES MNE: LYNDON
== END ==
PROVIDERS: Family Provider Family Medicine; PCP Family Medicine; Visit Provider Family Medicine
DX: R07.9 Chest pain, unspecified (principal); I25.10 Atherosclerotic heart disease of native coronary artery without angina pectoris; I10 Essential (primary) hypertension; E78.5 Hyperlipidemia, unspecified; Z95.5 Presence of coronary angioplasty implant and graft
CPT/HCPCS: 78452; 93016; 93017; 93018; A9502

== ENCOUNTER 2018-09-01 22:17 | Emergency (ER) | payer MEDICARE, BC, SELFPAY ==
[2018-07-08 19:00] VITALS: BMI 25.8
[2018-09-01 22:22] VITALS: BMI 23.5
[2018-09-01 23:14] LABS: Add Manual Diff / Slide Review NO; Basophils Absolute Auto 100 /uL (0-100); Basophils Percent Auto 0.7 % (0-2); Eosinophils Absolute Auto 100 /uL (0-450); Eosinophils Percent Auto 0.9 % (2-4); Hematocrit 43.1 % (41-53); Hemoglobin 14.9 g/dL (13.5-17.5); Lymphocytes Absolute Auto 1200 /uL (1100-4500); Lymphocytes Percent Auto 9.1 % (25-40); Mean Corpuscular HGB Conc 34.6 % (30-36); Mean Corpuscular Hemoglobin 32.2 PG (26-34); Mean Corpuscular Volume 93.2 fL (80-100); Monocytes Absolute Auto 1000 /uL (0-900); Monocytes Percent Auto 7.9 % (3-14); Neutrophils Absolute Auto 10400 /uL (1500-7000); Neutrophils Percent Auto 81.4 % (50-75); Platelet Count 160 X10^3/uL (150-400); Red Blood Cell Count 4.62 X10^6/uL (4.5-5.9); Red Cell Distribution Width 13.9 % (11.6-14.8); White Blood Cell Count 12.7 X10^3/uL (4.5-11.0)
--- NOTE | 2018-09-01 23:16 | ED_ITS ---
HPI - Male Genitourinary General Chief complaint: Urogenital-Male Stated complaint: PAIN RT SIDE LOWER LEVEL TOWARDS FRONT NAUSEA Time Seen by Provider: 09/01/18 22:45 Source: patient Mode of arrival: ambulatory Limitations: no limitations History of Present Illness HPI Narrative: 73-year-old male who states he had a kidney stone approximately 30 years ago. He states that 2 weeks ago he started having pain similar to when he had a kidney stone. He has seen his primary doctor earlier in the week. Was given pain medication but he states that he does not take it. He states the pain is continued he comes in waves. He states that he feels like he has to urinate then when he goes nothing comes out and feels like he needs to urinate again. Also having some constipation issues. No fevers. Related Data Home Medications Medication Instructions Recorded Confirmed metoprolol succinate 50 mg PO QDAY #30 ter 01/05/16 07/09/18 Previous Rx's Medication Instructions Recorded ibuprofen 600 mg PO Q6HP PRN #20 tab 03/25/16 nitroglycerin [Nitrostat] 0.4 mg SUBLINGUAL [id number] PRN #20 07/09/18 tab Allergies Allergy/AdvReac Type Severity Reaction Status Date / Time Penicillins [PENICILLINS] Allergy Mild ANAPHLAXYSI Verified 09/01/18 22:22 S Review of Systems Constitutional Denies fever(s) and Denies headache(s) ENT Ears, Nose, Mouth, and Throat: Denies headache(s) Cardiovascular Denies chest pain and Denies dyspnea Respiratory Denies dyspnea Gastrointestinal Gastrointestinal: Reports abdominal pain and Reports nausea Genitourinary Reports urinary frequency and Reports urinary hesitancy Musculoskeletal Denies back pain Integumentary/Breasts Denies rash Neurologic Denies confusion and Denies headache(s) Psychiatric Denies confusion Hematologic/Lymphatic Denies easy bleeding and Denies easy bruising [facility] Medical History Joint pain (Acute) Sciatica of right side (Acute) Chest pain (Acute) Lumbar strain (Acute) Chronic back pain (Chronic) Coronary artery disease (Chronic) Diabetes (Chronic) Hyperlipidemia (Chronic) Hypertension (Chronic) Ulcerative colitis (Chronic) Surgical History (Updated 07/08/18 @ 17:40 by Phill Knight MD) No pertinent past surgical history (Acute) History of arthroscopic knee surgery (Chronic) History of bilateral cataract extraction (Chronic) History of heart artery stent (Chronic) Social History household members: spouse Smoking Status: Current some day smoker Social History household members: spouse Smoking Status: Current some day smoker Exam Initial Vital Signs Initial Vital Signs: Vital Signs Temperature 97.2 F L 09/02/18 01:06 Pulse Rate 84 09/02/18 01:06 Respiratory Rate 18 09/02/18 01:06 Blood Pressure 123/83 09/02/18 01:06 Pulse Oximetry 98 09/02/18 01:06 Const General: cooperative, well developed, well groomed and No acute distress Orientation: alert, awake and oriented x3 HENMT Head: normal to inspection and normocephalic Resp Effort & Inspection: normal respiratory effort Auscultation: clear to auscultation bilaterally Cardio Rate: regular rate Rhythm: regular rhythm Skin Rashes: no rashes Neuro General: alert and awake Psych Appearance: grossly normal and well kempt Course Orders Ordered: ED Orders 09/01/18 23:03 Basic Metabolic Panel Stat Complete Blood Count AUTO DIFF Stat 09/01/18 23:25 CT kidney ureter bladder (KUB) Stat Discontinued Medications Hydrocodone Bitart/Acetaminophen ([place] 5/325) 1 tab PO NOW ONE Stop: 09/02/18 00:56 Last Admin: 09/02/18 01:05 Dose: 1 tab Vital Signs - 8 hr 09/02/18 01:06 Temperature 97.2 F L Pulse Rate 84 Respiratory Rate 18 Blood Pressure [Left Arm] 123/83 Pulse Oximetry 98 MDM - Male Genitourinary Lab Data Attestation: I reviewed the patient's lab results. Result diagrams: 09/01/18 23:03 09/01/18 23:03 Lab Results 09/01/18 09/01/18 Range/Units 23:03 23:03 WBC 12.7 H (4.5-11.0) X10^3/uL RBC 4.62 (4.5-5.9) X10^6/uL Hgb 14.9 (13.5-17.5) g/dL Hct 43.1 (41-53) % MCV 93.2 (80-100) fL MCH 32.2 (26-34) PG MCHC 34.6 (30-36) % RDW 13.9 (11.6-14.8) % Plt Count 160 (150-400) X10^3/uL Neut % (Auto) 81.4 H (50-75) % Lymph % (Auto) 9.1 L (25-40) % [place] % (Auto) 7.9 (3-14) % Eos % (Auto) 0.9 L (2-4) % Baso % (Auto) 0.7 (0-2) % Neut # (Auto) 38470 H (3086-2773) /uL Lymph # (Auto) 1200 (8486-2162) /uL [place] # (Auto) 1000 H (0-900) /uL Eos # (Auto) 100 (0-450) /uL Baso # (Auto) 100 (0-100) /uL Sodium 137 (137-145) mmol/L Potassium 4.2 (3.4-5.1) mmol/L Chloride 101 (98-107) mmol/L Carbon Dioxide 27 (22-32) mmol/L BUN 32 H (9-20) mg/dL Creatinine 1.30 H (0.66-1.25) mg/dL Estimated GFR 53.8 L (>60) mL/min BUN/Creatinine Ratio 24.6 H (6-22) Glucose 148 H (80-110) mg/dL Calcium 9.6 (8.4-10.2) mg/dL Urine Dip Bedside Urine Glucose Negative Bedside Urine Bilirubin - Negative Bedside Urine Ketone - Negative Urine Specific [place] 1.020 Bedside Urine Occult Blood +/- Bedside Urine pH 6.0 Bedside Urine Protein +/- 15 Bedside Urine Urobilinogen - Negative Bedside Urine Nitrite - Negative Bedside Urine Leukocytes - Negative Esterase Imaging Data CT scan - abdomen: Radiologist's impression: Obstructing right UVJ junction stone 3 mm. [facility] Narrative Medical decision making narrative: Patient without signs of urinary tract infection. Patient does have leukocytosis however no source of infection. His creatinine is somewhat elevated today. His symptoms have been going on for several weeks now. He has pain medication at home however it appears that he has not been using it. His symptoms are very consistent with a right-sided stone. Informed him that he should be taking his pain medication. He was ins tructed to avoid falling as these medications can cause him to be drowsy. Also informed that he needed to contact his primary doctor to discuss follow-up and the indications for referral to see Urology. He expressed understanding and agreement with plan Discharge Plan Departure Patient Disposition: Home Clinical Impression: Renal colic on right side Discharge Date/Time: 09/02/18 01:14 Interventions: ED Discharge Assessment Last Done: 09/02/18 01:14 Instructions: DI for Kidney Stones Activity Restrictions/Additional Instructions: Continue taking the pain medication that you were given by your primary doctor. On Tuesday contact your primary doctor's office to discuss the indications for referral to see Urology. Return to the emergency department for any new or worsening symptoms Prescriptions: No Action metoprolol succinate 50 MG tablet extended release 24 hr 50 mg PO QDAY Qty: 30 RF: 0 ibuprofen 600 MG tablet 600 mg PO Q6HP PRNQty: 20 RF: 0 nitroglycerin [Nitrostat] 0.4 mg Tablet, Sublingual 0.4 mg Sublingual [id number] PRN (Reason: Chest Pain) Qty: 20 RF: 0 Referrals: Miguelito Wilson MD [Primary Care Provider] -
[2018-09-01 23:21] LABS: BUN Creatinine Ratio 24.6 (6-22); Blood Urea Nitrogen 32 mg/dL (9-20); Calcium 9.6 mg/dL (8.4-10.2); Carbon Dioxide 27 mmol/L (22-32); Chloride 101 mmol/L (98-107); Estimated Glomerular Filt Rate 53.8 mL/min (>60); Glucose 148 mg/dL (80-110); HEMOLYSIS < 15 (0-50); Potassium 4.2 mmol/L (3.4-5.1); Sodium 137 mmol/L (137-145)
--- NOTE | 2018-09-01 23:25 | DI.CT.S_ITS ---
PROCEDURE: CT KIDNEY URETER BLADDER (KUB) INDICATIONS: Right-sided flank pain concern for kidney stone TECHNIQUE: Noncontrast 5 mm thick sections acquired from the diaphragms to the symphysis. 5 mm thick coronal and sagittal reformats were then performed. For radiation dose reduction, the following was used: automated exposure control, adjustment of mA and/or kV according to patient size. COMPARISON: None. FINDINGS: Image quality: Excellent. Lung bases: Lung bases are clear. Heart size is normal. Urinary system: There is a nonobstructing 3 mm distal right ureteral stone identified at the right ureterovesicular junction. There is mild-moderate associated hydroureteronephrosis on the right. Minimal right perinephric stranding. Left kidney is unremarkable in noncontrast appearance. Persistent small upper pole renal cyst. No left kidney stones. No left sided hydronephrosis or perinephric fat stranding. The left ureter is non-dilated throughout its expected course. Bladder wall thickness is normal; no calcified bladder stones. Other solid organs: Liver is normal in size. Gallbladder is normal. Pancreas is normal in contours. Spleen is normal in size. No adrenal nodules. Peritoneum and bowel: Nonobstructive bowel gas pattern of the visualized unenhanced bowel loops. Scattered colonic diverticulosis without acute diverticulitis. Minimal circumferential wall thickening of the descending colon and sigmoid colon likely related to incomplete distention. No free fluid or air. Nodes and vessels: No retroperitoneal or mesenteric adenopathy by size criteria. Aorta and inferior vena cava are normal in caliber. Moderate atherosclerotic calcifications of the mesenteric vessels. Abdominal wall: No ventral hernias. Small left fat-containing inguinal hernia without acute inflammation. Pelvis: No free pelvic fluid. No inguinal hernias or adenopathy. Bones: No suspicious bony lesions. No acute vertebral body compression fractures. Multilevel lumbar spondylosis. IMPRESSION: 1. Obstructing 3 mm distal right ureterolith at the level of the right ureterovesicular junction with associated right hydroureteronephrosis. 2. Other chronic findings as above. Findings are concordant with preliminary radiology report. Dictated by: Marcos Anders M.D. on 09/02/2018 at 6:40 Approved by: Marcos Anders M.D. on 09/02/2018 at 6:49
[2018-09-02] MEDS: HYDROCODONE/ACET 5/325 TABLET 1 TAB PO (01:05)
[2018-09-02 01:06] VITALS: BP 123/83; PULSE 84; RESP 18; TEMP 36.2; O2SAT 98
== END 2018-09-02 01:14 | disposition home or self-care (01) ==
PROVIDERS: Emergency Provider Emergency Medicine; Family Provider Family Medicine; PCP Family Medicine
DX: N23 Unspecified renal colic (principal)
CPT/HCPCS: 36591; 74176; 80048; 81003; 85025; 99282; 99284

== ENCOUNTER → 2019-01-03 13:10 | Outpatient (CLI) | payer MEDICARE, BC, SELFPAY ==
[2018-07-08 19:00] VITALS: BMI 25.8
--- NOTE | 2019-01-03 | DI.RAD.S_ITS ---
PROCEDURE: XR KUB INDICATIONS: Kidney Stones TECHNIQUE: One view of the abdomen acquired. COMPARISON: None. FINDINGS: Surgical changes and devices: None. Bowel: Nonobstructive bowel gas pattern. Soft tissues: Linear calcifications of the left upper quadrant of the abdomen consistent with vascular calcifications. Small 2 mm rounded calcifications within the pelvis likely represent pelvic phleboliths (less likely distal ureteral or bladder stones). No convincing abdominal calcifications consistent with nephrolithiasis. Bones: Mild bilateral hip and mild multilevel lumbar degenerative changes. IMPRESSION: Small 2 mm rounded calcifications within the pelvis likely represent pelvic phleboliths (less likely distal ureteral or bladder stones). No convincing abdominal calcifications consistent with nephrolithiasis. Dictated by: Timi Narayanan M.D. on 01/03/2019 at 17:03 Approved by: Timi Narayanan M.D. on 01/03/2019 at 17:05
== END ==
PROVIDERS: PCP Family Medicine; Visit Provider Specialist
DX: N20.0 Calculus of kidney (principal)
CPT/HCPCS: 74018

== ENCOUNTER → 2020-08-12 16:26 | Outpatient (CLI) | payer MEDICARE, BC, SELFPAY ==
[2018-07-08 19:00] VITALS: BMI 25.8
--- NOTE | 2020-08-12 16:30 | DI.RAD.S_ITS ---
PROCEDURE: XR CHEST 2V INDICATIONS: RIGHT RIB INJURY TECHNIQUE: 2 views of the chest were acquired. COMPARISON: [facility], CR, XR CHEST 1V, 07/08/2018, 15:52. FINDINGS: Surgical changes and devices: None. Lungs and pleura: Lungs are clear. No pleural effusions or pneumothorax. Mediastinum: Mediastinal contours are normal. Heart size is normal. Bones and chest wall: No suspicious bony abnormalities. Soft tissues appear unremarkable. IMPRESSION: No acute cardiopulmonary disease process. Dictated by: Carolyne Calles MD, PhD on 08/12/2020 at 18:02 Approved by: Carolyne Calles MD, PhD on 08/12/2020 at 18:03
== END ==
PROVIDERS: PCP Family Medicine; Referring Provider Family Medicine; Visit Provider Family Medicine
DX: S29.9XXA Unspecified injury of thorax, initial encounter (principal); X58.XXXA Exposure to other specified factors, initial encounter
CPT/HCPCS: 71046

== ENCOUNTER 2021-06-27 15:37 | Emergency (ER) | payer MEDICARE, BC, SELFPAY ==
[2018-07-08 19:00] VITALS: BMI 25.8
[2021-06-27 16:21] VITALS: BP 111/58; PULSE 73; RESP 14; TEMP 36.4; O2SAT 97; BMI 24.1
--- NOTE | 2021-06-27 16:24 | DI.RAD.S_ITS ---
PROCEDURE: XR HIP W PEL IF DONE RT 2V INDICATIONS: fall, pain to right hip TECHNIQUE: To views of the hip were acquired. COMPARISON: None. FINDINGS: Bones: No fractures or dislocations. No suspicious bony lesions. The visualized pelvic ring appears intact. Moderate bilateral acetabular joint space narrowing. Soft tissues: No suspicious soft tissue calcifications or masses. IMPRESSION: Moderate acetabular joint space narrowing without osteophyte. No fracture. Approved by: Jose Pierre M.D. on 06/27/2021 at 16:36
--- NOTE | 2021-06-27 18:08 | ED_ITS ---
HPI - Extremity Injury (Lower) General Chief Complaint: Extremity Injury, Lower Stated Complaint: fell on right hip 2 hours ago Time Seen by Provider: 06/27/21 17:57 Source: patient Mode of arrival: Wheelchair History of Present Illness HPI Narrative: Patient is a 76-year-old male who approximately 2 hours prior to arrival had a mechanical fall at home landing on his right hip. Did not hit his head. No neck pain. His pain on the outside of his hip. He has been able to ambulate. Does hurt to touch. Has not tried anything for the symptoms prior to arrival. Related Data Home Medications Medication Instructions Recorded Confirmed metoprolol succinate 50 mg 50 mg PO QDAY #30 ter 01/05/16 07/09/18 tablet,extended release 24 hr Previous Rx's Medication Instructions Recorded ibuprofen 600 mg tablet 600 mg PO Q6HP PRN #20 tab 03/25/16 nitroglycerin 0.4 mg sublingual 0.4 mg SUBLINGUAL [id number] PRN #20 07/09/18 tablet (Nitrostat) tab Allergies Allergy/AdvReac Type Severity Reaction Status Date / Time Penicillins [PENICILLINS] Allergy Mild ANAPHLAXYSI Verified 06/27/21 16:20 S Review of Systems Constitutional Constitutional: Denies headache(s) ENT Ears, Nose, Mouth, and Throat: Denies headache(s) Musculoskeletal Musculoskeletal: Reports system reviewed and no additional complaints, except as documented and Reports as per HPI Neurologic Neurologic: Denies headache(s) Hematologic/Lymphatic On Anticoagulants: No Patient History Medical History Chest pain Chronic back pain Coronary artery disease Diabetes Hyperlipidemia Hypertension Joint pain Lumbar strain Sciatica of right side Ulcerative colitis Surgical History (Updated 07/08/18 @ 17:40 by Phill Knight MD) History of arthroscopic knee surgery History of bilateral cataract extraction History of heart artery stent No pertinent past surgical history Social History household members: spouse Smoking Status: Current some day smoker Smoking Status: Current some day smoker alcohol intake frequency: 0-2 drinks per day Substance Use Type: does not use Exam Initial Vital Signs Initial Vital Signs: Vital Signs Temperature 97.6 F 06/27/21 16:21 Pulse Rate 73 06/27/21 16:21 Respiratory Rate 14 06/27/21 16:21 Blood Pressure 111/58 L 06/27/21 16:21 Pulse Oximetry 97 06/27/21 16:21 HENMT Head: normal to inspection and normocephalic Resp Effort & Inspection: normal respiratory effort Cardio Rate: regular rate Extrem Other: Patient is isolated tenderness to palpation lateral aspect of the right hip over the greater trochanter. Otherwise his musculoskeletal exam is unremarkable. Course Orders Ordered: ED Orders 06/27/21 16:24 XR hip w pel if done RT 2V Stat Vital Signs Vital signs: Vital Signs - 8 hr 06/27/21 16:21 Temperature 97.6 F Pulse Rate 73 Respiratory Rate 14 Blood Pressure 111/58 L Pulse Oximetry 97 MDM - Extremity Injury (Lower) Imaging Data Extremity x-ray #1: Radiologist's Impression: [address] [address] XRay Report Signed Patient: Jameson Pavon MR#: [id number] : 1945 Acct:[id number] Age/Sex: 76 / M Date of Service: 06/27/21 Loc: ED Accession Number: [id number] ?? Procedure: XR hip w pel if done RT 2V Ordering Provider: Melissa Swenson D.O. PROCEDURE:? XR HIP W PEL IF DONE RT 2V ? INDICATIONS:? fall, pain to right hip ? TECHNIQUE:? To views of the hip were acquired.? ? COMPARISON:? None. ? FINDINGS:? ? Bones:? No fractures or dislocations.? No suspicious bony lesions.? The visualized pelvic ring appears intact.? Moderate bilateral acetabular joint space narrowing. ? Soft tissues:? No suspicious soft tissue calcifications or masses.? ? IMPRESSION:? ? Moderate acetabular joint space narrowing without osteophyte.? No fracture. ? ? ? Approved by: Jose Pierre M.D. on 06/27/2021 at 16:36? [facility] Narrative Medical decision making narrative: This was a mechanical fall. Patient is ambulatory. Isolated pain over the greater trochanter on the right. No fractures noted on the x-rays. Will hold on further workup for now. Patient was given care instructions return precautions. Expressed understanding and agreement. Discharge Plan Departure Patient Disposition: Home Clinical Impression: Contusion of hip Instructions: DI for Hip Pain Activity Restrictions/Additional Instructions: There were no fractures noted on the x-rays. You can continue to take Tylenol/ibuprofen for discomfort. Return to the emergency department for any new or worsening symptoms. You have no restrictions on your activities. Prescriptions: No Action metoprolol succinate 50 MG tablet extended release 24 hr 50 mg PO QDAY Qty: 30 0RF ibuprofen 600 MG tablet 600 mg PO Q6HP PRNQty: 20 0RF nitroglycerin [Nitrostat] 0.4 mg Tablet, Sublingual 0.4 mg Sublingual [id number] PRN (Reason: Chest Pain) Qty: 20 0RF Referrals: Charanjit James MD [Primary Care Provider] -
== END 2021-06-27 18:40 | disposition home or self-care (01) ==
PROVIDERS: Emergency Provider Emergency Medicine; PCP Family Medicine
DX: S70.01XA Contusion of right hip, initial encounter (principal); W18.30XA Fall on same level, unspecified, initial encounter
CPT/HCPCS: 73502; 99283

== ENCOUNTER 2022-12-19 13:18 | Emergency (ER) | payer MEDICARE, BC, SELFPAY ==
[2018-07-08 19:00] VITALS: BMI 25.8
[2022-12-19 13:31] VITALS: BP 125/67; PULSE 76; RESP 20; TEMP 37; O2SAT 96; BMI 23.9
[2022-12-19 14:14] VITALS: PULSE 72; RESP 22; O2SAT 97
[2022-12-19 14:15] VITALS: BP 108/65; PULSE 72; RESP 22; O2SAT 97
[2022-12-19 14:30] VITALS: BP 110/72; PULSE 75; O2SAT 96
--- NOTE | 2022-12-19 14:37 | ED.GENADULT ---
HPI - General Adult General Chief complaint: Abdominal Pain Stated complaint: lower abd cramping Time Seen by Provider: 12/19/22 14:14 Source: patient Mode of arrival: Ambulatory History of Present Illness HPI narrative: Patient is a 77-year-old male. With a history of IBS. He has not seen a GI doctor in quite a long time. He is on a IBS medication that he states is Pensa. He has been on this for years. He just continues to get a refill 11. He does have a primary doctor. Has had a colonoscopy in the past. He states that his last evaluation was a pill that he swallowed and was told that everything was okay. He is here for evaluation of 6-8 weeks of lower abdominal pain. He states the lower abdominal pain is sharp. It comes on suddenly. It is ?always? associated with either passing gas or having a bowel movement. He states that after he does this his symptoms go away. He does pass gas and have bowel movements without any discomfort. He denies any urinary symptoms. No testicular pain. No nausea or vomiting. No skin rashes. No fevers. Of prior abdominal surgeries. He has a follow-up with his primary doctor on Tuesday. Related Data Home Medications Medication Instructions Recorded Confirmed metoprolol succinate 50 mg 50 mg PO QDAY ##30 01/05/16 07/09/18 tablet,extended release 24 hr Previous Rx's Medication Instructions Recorded ibuprofen 600 mg tablet 600 mg PO Q6HP PRN #20 tabs 03/25/16 nitroglycerin 0.4 mg sublingual 0.4 mg sublingual [id number] PRN 07/09/18 tablet (Nitrostat) Chest Pain #20 tabs dicyclomine 10 mg capsule 10 mg PO BID PRN abdominal pain 12/19/22 #20 caps Allergies Allergy/AdvReac Type Severity Reaction Status Date / Time Penicillins [PENICILLINS] Allergy Mild ANAPHLAXYSI Verified 12/19/22 13:37 S Review of Systems Review of Systems ROS Unobtainable: All systems reviewed & are unremarkable except as noted in HPI and below Patient History Medical History (Updated 12/19/22 @ 14:46 by Miguelito Diggs DO) Chest pain Chronic back pain Coronary artery disease Diabetes Hyperlipidemia Hypertension Joint pain Lumbar strain Sciatica of right side Ulcerative colitis Surgical History (Updated 07/08/18 @ 17:40 by Phill Knight MD) History of arthroscopic knee surgery History of bilateral cataract extraction History of heart artery stent No pertinent past surgical history Social History household members: spouse Smoking Status: Current some day smoker Smoking Status: Current some day smoker alcohol intake frequency: 0-2 drinks per day Substance Use Type: does not use Exam Initial Vital Signs Initial Vital Signs: Vital Signs Temperature 98.6 F 12/19/22 13:31 Pulse Rate 76 12/19/22 13:31 Respiratory Rate 20 12/19/22 13:31 Blood Pressure 125/67 12/19/22 13:31 Pulse Oximetry 96 12/19/22 13:31 Oxygen Delivery Method Room Air 12/19/22 13:31 Const General: cooperative, comfortable and No ill appearing HENMT Head: normal to inspection and normocephalic Resp Effort & Inspection: normal respiratory effort Cardio Rate: regular rate GI Inspection: normal to inspection and non-distended Palpation: soft, No firm, No guarding and No tender Skin General: no rashes or lesions noted Neuro General: patient alert and moves all extremities Extrem General: capillary refill normal Course Orders Ordered: ED Orders 12/19/22 13:38 Complete Blood Count AUTO DIFF Stat Comprehensive Metabolic Panel Stat Lipase Stat Ondansetron HCl (Ondansetron 4 Mg Odt) 4 mg PO NOW PRN PRN Reason: Nausea And Vomiting Ondansetron HCl (Ondansetron 4 Mg/2 Ml Inj) 4 mg IV NOW PRN PRN Reason: Nausea And Vomiting Vital Signs Vital signs: Vital Signs - 8 hr 12/19/22 13:31 Temperature 98.6 F Pulse Rate 76 Respiratory Rate 20 Blood Pressure 125/67 Pulse Oximetry 96 Oxygen Delivery Method Room Air Medical Decision Making MDM Narrative Medical decision making narrative: Patient has a benign exam. Has had 8 weeks of symptoms. All of his pain is associated with either passing gas or having a bowel movement. He is no testicular pain. I have a low suspicion for an acute intra-abdominal issue such as bowel obstruction, appendicitis, urinary tract infection, testicular torsion. I feel that labs be unhelpful. There is no indication for CT scanning today. He is no pain at the time of my evaluation. He is an appoint with his primary doctor on Tuesday. Will have him keep that appointment on Tuesday. Will try Bentyl to see if this helps his symptoms. He was given return precautions. He expressed understanding and agreement. Discharge Plan Departure Patient Disposition: Home Clinical Impression: Abdominal pain Instructions: DI for Abdominal Pain-Adult Activity Restrictions/Additional Instructions: I do recommend that you keep your appointment that you have with your primary doctor on Tuesday. You can discuss with your primary doctor the indications for a referral to see Gastroenterology. Use the Dicyclomine as directed. Return to the emergency department for new symptoms. Prescriptions: New dicyclomine 10 mg capsule 10 mg PO BID PRN (Reason: abdominal pain) Qty: 20 0RF No Action metoprolol succinate 50 MG tablet extended release 24 hr 50 mg PO QDAY Qty: 30 ibuprofen 600 MG tablet 600 mg PO Q6HP PRNQty: 20 0RF nitroglycerin [Nitrostat] 0.4 mg Tablet, Sublingual 0.4 mg Sublingual [id number] PRN (Reason: Chest Pain) Qty: 20 0RF Referrals: Charanjit James MD [Primary Care Provider] - Stand Alone Forms: Patient Portal/API
== END 2022-12-19 14:54 | disposition home or self-care (01) ==
PROVIDERS: Emergency Provider Emergency Medicine; PCP Family Medicine
DX: R10.30 Lower abdominal pain, unspecified (principal)
CPT/HCPCS: 99281; 99282

== ENCOUNTER → 2022-12-28 09:49 | Outpatient (CLI) | payer MEDICARE, BC, SELFPAY ==
[2018-07-08 19:00] VITALS: BMI 25.8
--- NOTE | 2022-12-28 11:28 | DI.CT.S_ITS ---
PROCEDURE: CT ABDOMEN PELVIS W CON INDICATIONS: Right lower quadrant pain TECHNIQUE: After the administration of oral and intravenous contrast, axial sections were acquired from the lung bases to the pubic symphysis. Coronal and sagittal reformats were performed. For radiation dose reduction, the following was used: automated exposure control, adjustment of mA and/or kV according to patient size. COMPARISON:[facility], CT, CT ABDOMEN PELVIS W CON, 01/23/2018, 5:39. FINDINGS: Image quality: Excellent. Lung bases: Unremarkable. Heart: No significant findings. ABDOMEN: Liver: Unremarkable. Gallbladder: Unremarkable. Biliary ducts: Unremarkable. Pancreas: Unremarkable. Spleen: A couple of new hypoattenuating splenic lesions measuring up to 1 centimeter. Adrenal Glands: Unremarkable. Kidneys and Ureters: Small burden of punctate, nonobstructing right-sided stones. Fluid attenuating cysts. No hydronephrosis. Stomach and Bowel: Significant colonic wall thickening of the distal descending colon and sigmoid colon. Diverticulosis but no inflamed diverticula present. Peritoneum: No abnormal intraperitoneal fluid. No free air. Ventral Wall: No hernia. Abdominal Nodes: No retroperitoneal or mesenteric adenopathy by size criteria. Vessels: Aorta and inferior vena cava are normal in size. PELVIS: Pelvic Organs: Unremarkable. Bladder: Unremarkable. Pelvic Nodes: No enlarged lymph nodes. Miscellaneous: Small, fat containing left inguinal hernia. Bones: Unremarkable. IMPRESSION: Diffuse wall thickening of the distal descending colon and sigmoid colon. While diverticula are present, there is no inflamed diverticulum to suggest active diverticulitis. Differential includes colitis, chronic diverticulitis, less likely malignancy. Consider follow-up in 1-2 months versus diagnostic colonoscopy to exclude malignancy. Small burden of punctate, nonobstructing right-sided nephrolithiasis. A couple of 1 centimeter splenic lesions, new since 2018. Etiologies typically benign, such as hemangiomas. Attention on follow-up. Dictated by: Marvin Ba M.D. on 12/28/2022 at 14:22 Approved by: Marvin Ba M.D. on 12/28/2022 at 14:46
== END ==
PROVIDERS: PCP Family Medicine; Referring Provider Family Medicine; Visit Provider Family Medicine
DX: K57.30 Diverticulosis of large intestine without perforation or abscess without bleeding (principal); D73.9 Disease of spleen, unspecified; N20.0 Calculus of kidney; R10.31 Right lower quadrant pain
CPT/HCPCS: 74177; Q9967

== ENCOUNTER → 2023-11-28 | Outpatient (CLI) | payer MEDICARE, BC, SELFPAY ==
[2018-07-08 19:00] VITALS: BMI 25.8
--- NOTE | 2023-11-28 11:47 | DI.US.S_ITS ---
PROCEDURE: US PERIPH VENOUS LOW EXTREM RT INDICATIONS: Pain in right lower leg TECHNIQUE: Real-time imaging, as well as color and pulse Doppler interrogation, were performed of the lower extremity deep veins from the inguinal ligament to the popliteal fossa, with documentation of the visualized calf veins. COMPARISON: None. FINDINGS: The common femoral, femoral, popliteal, and the visualized calf veins are normally compressible, and free of intraluminal thrombus. Color and pulse Doppler demonstrate normal phasic intraluminal flow. There is normal augmentation response to distal compression maneuver. IMPRESSION: No findings of lower extremity deep venous thrombosis. Dictated by: Daljit Bonner M.D. on 11/29/2023 at 12:50 Approved by: Daljit Bonner M.D. on 11/29/2023 at 12:50
== END ==
PROVIDERS: PCP Family Medicine; Referring Provider Registered Nurse; Visit Provider Registered Nurse
DX: M79.661 Pain in right lower leg (principal)
CPT/HCPCS: 93971